=== PATIENT | female | born 1940 | race Caucasian/White ===

== ENCOUNTER 2025-01-02 07:51 | Emergency (ER) | payer MEDICARE ==
[2025-01-02] MEDS ORDERED: Ondansetron PF 4 MG/2 ML Vial ONE (10:24)
[2025-01-02] MEDS ORDERED: Ketorolac Tromethamine 30 MG (1 mL) VIAL ONE (10:24)
[2025-01-02 10:57] LABS: #Basophils 0.05 10x3/uL (0.0-0.2); #Eosinophils 0.03 10x3/uL (0.0-0.7); #Monocytes 0.51 10x3/uL (0.11-0.59); #Neutrophils 6.29 10x3/uL (1.40-6.50); %Basophils 0.6 % (0.0-1.0); %Eosinophils 0.4 % (0.0-10.0); %Lymphocytes 15.1 % (21.0-51.0); %Monocytes 6.3 % (0.0-10.0); %Neutrophils 77.4 % (42.0-75.0); Hematocrit 42.6 % (36.0-47.0); Hemoglobin 14.5 g/dL (12.0-16.0); Mean Corpuscular Hemoglobin 31.9 pg (27.0-31.0); Mean Corpuscular Volume 93.8 fL (78.0-98.0); Platelet Count 291 10x3/uL (130-400); Red Blood Cell (RBC) Count 4.54 mill/uL (4.20-5.40); White Blood Cell (WBC) Count 8.13 10x3/uL (4.8-10.8)
[2025-01-02 11:22] LABS: ALT (SGPT) 14 U/L (Less than 34); AST (SGOT) 36 U/L (11-34); Albumin 4.0 g/dL (3.1-4.5); Alkaline Phosphatase 78 U/L (40-110); Anion Gap 18 mmol/L (10-20); BUN (Urea Nitrogen) 10 mg/dL (9.8-20.1); Bilirubin, Total 0.6 mg/dL (0.3-1.2); Calc. Creatinine Clearance 0 mL/min (70-130); Calcium 9.9 mg/dL (7.8-10.44); Carbon Dioxide 22 mmol/L (23-31); Chloride 101 mmol/L (98-107); Globulin 3.2 g/dL (2.4-3.5); Glucose 121 mg/dL (83-110); Potassium 4.2 mmol/L (3.5-5.1); Sodium 137 mmol/L (136-145)
[2025-01-02 11:42] LABS: INR-International Normal Ratio 1.0; PTT 29.4 sec (22.9-36.1); Prothrombin Time 13.4 sec (12.0-14.7)
== END 2025-01-02 14:01 | disposition short-term general hospital (02) ==
LOC: ERS 07:51
DX: S02.601A Fracture of unspecified part of body of right mandible, initial encounter for closed fracture (principal); E11.9 Type 2 diabetes mellitus without complications; I10 Essential (primary) hypertension; Z87.891 Personal history of nicotine dependence; W01.198A Fall on same level from slipping, tripping and stumbling with subsequent striking against other object, initial encounter; Y93.01 Activity, walking, marching and hiking
CPT/HCPCS: 70450; 70486; 72125; 80053; 85025; 85610; 85730; J1885; J3490; 36415; 96365; 96375

== ENCOUNTER 2025-02-01 07:39 | Outpatient (CLI) | payer MEDICARE ==
[2025-02-01] MEDS ORDERED: Iopamidol 370 76% 100 ML VIAL ONE (14:29)
== END 2025-02-01 07:40 | disposition home or self-care (01) ==
LOC: CT 07:39
PROVIDERS: ATTEND Family Medicine
DX: J44.89 Other specified chronic obstructive pulmonary disease (principal); J43.9 Emphysema, unspecified
CPT/HCPCS: 71270; Q9967